=== PATIENT | male | born 1950 | race Hispanic/Latino ===

== ENCOUNTER 2021-07-11 05:55 | Day surgery (SDC) | payer MEDICARE ==
[2021-07-08 10:50] LABS: BASOPHILS % (AUTO) 1.3 % (0.0-5.0); EOSINOPHILS % (AUTO) 16.2 % (0.0-8.0); HEMATOCRIT 27.6 % (42-54); LYMPHOCYTES % (AUTO) 31.6 % (21.0-51.0); MEAN CORPUSCULAR HEMOGLOBIN 34.1 pg (27.0-33.0); MEAN CORPUSCULAR HGB CONC 31.2 g/dL (32.0-36.0); MEAN CORPUSCULAR VOLUME 109.5 fL (79-99); MONOCYTES % (AUTO) 8.4 % (3.0-13.0); NEUTROPHILS % (AUTO) 42.2 % (40.0-77.0); PLATELET COUNT (AUTO) 84 K/uL (130-400); RED BLOOD CELL COUNT(AUTO) 2.52 MIL/uL (4.50-6.20); RED CELL DISTRIBUTION WIDTH 17.1 % (11.0-15.5); WHITE BLOOD COUNT (AUTO) 3.8 K/uL (4.8-10.8)
[2021-07-08 11:07] LABS: CREATININE 2.7 mg/dL (0.5-1.5); POTASSIUM 4.1 mmol/L (3.5-5.1)
[2021-07-08 11:19] LABS: INR 1.21 (0.85-1.15)
[2021-07-08 11:20] LABS: PARTIAL THROMBOPLASTIN TIME 28.9 SEC (26.3-35.5)
[2021-07-08 13:19] VITALS: BP 121/66
[~2021-07-11] VITALS: Ht 160 cm; Wt 81.8 kg
[2021-07-11] VITALS (9 sets, daily range): BP systolic 113–128; BP diastolic 57–68
[~2021-07-11 05:55] MED LIST: 0.9%NACL 1000ML 1,000 ML IV SCH; ALLO100T PO; ASPI-1197 PO; ATOR20TA65 PO; CARV12.511 PO; CYAN100T45 PO; FERR324T4 PO; FOLI1 PO; FOLI1TAB85 PO; FURO40TA5 PO; LEVO88CA4 PO; LOSA100T58 PO; NIAC500T22 PO
[2021-07-11 07:12] LABS: BASOPHILS % (AUTO) 1.1 % (0.0-5.0); EOSINOPHILS % (AUTO) 16.6 % (0.0-8.0); HEMATOCRIT 26.5 % (42-54); LYMPHOCYTES % (AUTO) 32.7 % (21.0-51.0); MEAN CORPUSCULAR HEMOGLOBIN 34.3 pg (27.0-33.0); MEAN CORPUSCULAR HGB CONC 31.3 g/dL (32.0-36.0); MEAN CORPUSCULAR VOLUME 109.5 fL (79-99); MONOCYTES % (AUTO) 11.8 % (3.0-13.0); NEUTROPHILS % (AUTO) 37.6 % (40.0-77.0); PLATELET COUNT (AUTO) 75 K/uL (130-400); RED BLOOD CELL COUNT(AUTO) 2.42 MIL/uL (4.50-6.20); RED CELL DISTRIBUTION WIDTH 17.2 % (11.0-15.5); WHITE BLOOD COUNT (AUTO) 4.6 K/uL (4.8-10.8)
[2021-07-11] MEDS ORDERED: BUPIVACAINE/PF 0.25% 30ML VIAL IJ ONE (07:19)
[2021-07-11] MEDS ORDERED: MIDAZOLAM HCL 1 MG/ML 2ML VIAL ONE (07:19)
[2021-07-11] MEDS ORDERED: CEFAZOLIN SODIUM 1 GM VIAL ONE (07:19)
[2021-07-11] MEDS ORDERED: MEPERIDINE-PF 25 MG/ML SYG ONE (07:19)
[2021-07-11] MEDS ORDERED: LIDOCAINE HCL 1% MDV 50ML VIAL ONE (07:20)
[2021-07-11] MEDS ORDERED: VANCOMYCIN 1G/250ML KIT 500 ML IV ONE (07:20)
[2021-07-11] MEDS ORDERED: ACETAMINOPHEN WITH CODEINE 1 TAB TAB PO PRN (10:00)
== END 2021-07-11 13:25 | disposition home or self-care (01) ==
LOC: UNDOADMOB 05:55 → DAHIP 05:55 → DAH 05:55 → EDSTATUS 09:00 → DAH 13:25
PROVIDERS: ATTEND Internal Medicine Cardiovascular Disease
DX: I25.5 Ischemic cardiomyopathy (principal); I11.0 Hypertensive heart disease with heart failure; I50.22 Chronic systolic (congestive) heart failure; I25.10 Atherosclerotic heart disease of native coronary artery without angina pectoris; I25.2 Old myocardial infarction; E78.5 Hyperlipidemia, unspecified; E03.9 Hypothyroidism, unspecified; D46.9 Myelodysplastic syndrome, unspecified; D69.6 Thrombocytopenia, unspecified; Z79.899 Other long term (current) drug therapy; Z79.82 Long term (current) use of aspirin; Z79.01 Long term (current) use of anticoagulants; Z98.890 Other specified postprocedural states
CPT/HCPCS: 33249; 36415 ×2; 71045; 80048; 85025 ×2; 85610; 85730; 86850; 86900; 86901; 93005; A4215; A4216; A4221; A4222; A4223 ×3; A4606; A4663; A6260; C1722; C1895; J2175; J2250; J3370; J3490 ×2; 99156; 99157; J0690

== ENCOUNTER → 2024-05-24 | Outpatient (CLI) | payer MEDICARE ==
[~2024-05-24] MED LIST changes: -0.9%NACL 1000ML 1,000 ML IV SCH; -LOSA100T58 PO; +LOSA100T59 PO
== END | disposition home or self-care (01) ==
LOC: SHCH 08:48
PROVIDERS: ATTEND Internal Medicine Cardiovascular Disease
DX: I82.409 Acute embolism and thrombosis of unspecified deep veins of unspecified lower extremity (principal); I87.2 Venous insufficiency (chronic) (peripheral)
CPT/HCPCS: 93970